=== PATIENT | female | born 2000 | race Caucasian/White ===

== ENCOUNTER 2024-02-11 09:40 | Outpatient (CLI) | payer BC, SELFPAY | END 2024-02-11 09:41 | disposition home or self-care (01) | LOC: NFLDREF 02-12 08:35 | PROVIDERS: PCP Emergency Medicine; Referring Provider Emergency Medicine; Visit Provider Emergency Medicine | DX: E53.8 Deficiency of other specified B group vitamins (principal); Z13.220 Encounter for screening for lipoid disorders | CPT/HCPCS: 80061; 82607; 82746 ==

== ENCOUNTER 2024-02-22 07:57 | Outpatient (CLI) | payer BC, SELFPAY | END 2024-02-22 07:58 | disposition home or self-care (01) | LOC: RAD 07:58 | PROVIDERS: PCP Emergency Medicine; Visit Provider Emergency Medicine | DX: R01.1 Cardiac murmur, unspecified (principal); I34.0 Nonrheumatic mitral (valve) insufficiency; I35.1 Nonrheumatic aortic (valve) insufficiency | CPT/HCPCS: 93306 ==

== ENCOUNTER 2024-11-30 08:14 | Outpatient (CLI) | payer BC, SELFPAY | END 2024-11-30 08:15 | disposition home or self-care (01) | PROVIDERS: PCP Emergency Medicine; Visit Provider Physician Assistant Medical | DX: E53.8 Deficiency of other specified B group vitamins (principal); F41.1 Generalized anxiety disorder; Z13.1 Encounter for screening for diabetes mellitus; Z13.0 Encounter for screening for diseases of the blood and blood-forming organs and certain disorders involving the immune mechanism; Z86.39 Personal history of other endocrine, nutritional and metabolic disease | CPT/HCPCS: 82306; 82728; 82746; 84443 ==